=== PATIENT | female | born 1970 | race Caucasian/White ===

== ENCOUNTER → 2019-05-09 | Outpatient (CLI) | payer OTHER | END | disposition home or self-care (01) | LOC: RAD 07:32 | DX: R05 Cough (principal) ==

== ENCOUNTER 2020-08-24 13:44 | Outpatient (CLI) | payer OTHER | END 2020-08-24 13:49 | disposition HB | LOC: RAD 13:44 | PROVIDERS: ATTEND Obstetrics & Gynecology | DX: R05 Cough (principal) ==

== ENCOUNTER 2021-10-11 11:16 | Outpatient (CLI) | payer OTHER | END 2021-10-11 11:31 | disposition home or self-care (01) | LOC: SONOGRAMA 11:16 | PROVIDERS: ATTEND Internal Medicine Endocrinology, Diabetes & Metabolism | DX: E04.1 Nontoxic single thyroid nodule (principal) ==

== ENCOUNTER 2023-10-08 08:01 | Outpatient (CLI) | payer BC | END 2023-10-08 08:06 | disposition home or self-care (01) | LOC: SONOGRAMA 08:01 | PROVIDERS: ATTEND Internal Medicine Endocrinology, Diabetes & Metabolism | DX: E04.1 Nontoxic single thyroid nodule (principal) ==